=== PATIENT | female | born 2000 | race Caucasian/White ===

== ENCOUNTER → 2020-02-27 | Outpatient (CLI) | payer OTHER ==
[~2020-02-27] MED LIST: ALBU8.5H8 INH; HYDR50CA PO; INHALER; NAPROXEN; OMNIPAQUE 350 MG/ML, 100ML BOTTLE ONE; ONDA4TAB10 PO
== END | disposition home or self-care (01) ==
LOC: CFH 14:11
PROVIDERS: ATTEND Family Medicine
DX: N83.201 Unspecified ovarian cyst, right side (principal)
CPT/HCPCS: 74177; Q9967